=== PATIENT | male | born 1970 | race Caucasian/White ===

== ENCOUNTER 2018-01-22 10:00 | Emergency (ER) | payer SELFPAY ==
[~2018-01-22] VITALS: Ht 180.3 cm; Wt 94.6 kg
[~2018-01-22 10:00] MED LIST: BACTRIM,SEPT1 TABLET PO; CLEOCIN300 MG PO; ENDOCET 5-3251 EACH PO; METFORMIN HCL500 MG PO; NAPROSYN500 MG PO; NOHOMEMEDS; PEN-VEE K,VEET250 MG PO; PRILOSEC20 MG PO; TYLENOL PM1 CAPLET PO
[2018-01-22 11:45] LABS: HEMOGLOBIN 15.9 G/DL (12.5-16.6); MCH 30.6 PG (29.0-34.0); MCHC 34.6 G/DL (30.0-36.0); MCV 88.5 FL (86-99); PLATELET COUNT 414 K/uL (156-360); RBC DIS.WIDTH-CV 12.1 % (11.8-14.6); RBC DIS.WIDTH-SD 39.6 % (39-53); WHITE BLOOD COUNT 24.3 K/uL (4.1-10.2)
[2018-01-22 12:28] LABS: ALBUMIN 3.7 G/DL (3.2-4.8); CHLORIDE 92 MEQ/L (99-109); POTASSIUM 3.8 MEQ/L (3.7-5.4); SODIUM 132 MEQ/L (136-147)
[2018-01-22 12:34] LABS: ALKALINE PHOSPHATASE 152 IU/L (3-129); ALT (GPT) 14 IU/L (3-49); AST (GOT) 13 IU/L (2-34); CREATININE 0.8 MG/DL (0.6-1.3); GFR ESTIMATE (CALCULATED) > 59 mL/min/ (58.99-99999); GLUCOSE 308 mg/dL (70-99); TOTAL PROTEIN 7.8 G/DL (6.4-8.3); UREA NITROGEN (BUN) 12 mg/dL (9-23)
[2018-01-22 18:54] VITALS: BP 108/70
== END 2018-01-22 18:58 | disposition short-term general hospital (02) ==
LOC: EME 10:00
PROVIDERS: Nurse Practitioner Family
DX: L03.317 Cellulitis of buttock (principal); N49.3 Fournier gangrene; E11.65 Type 2 diabetes mellitus with hyperglycemia; E87.1 Hypo-osmolality and hyponatremia; I45.6 Pre-excitation syndrome; R94.31 Abnormal electrocardiogram [ECG] [EKG]; K21.9 Gastro-esophageal reflux disease without esophagitis; F17.200 Nicotine dependence, unspecified, uncomplicated
CPT/HCPCS: 71046; 72193; 80053; 81003; 82948; 83605; 85027; 87040; 93005; 99281; 99285; J1885; J2270; J2405; J2543; J3370; J7030